=== PATIENT | female | born 1945 | race African-American/Black ===

== ENCOUNTER 2017-02-15 13:32 | Inpatient (IN) | payer OTHER, MEDICARE ==
[~2017-02-15] VITALS: Ht 165.1 cm; Wt 68.0 kg
[~2017-02-15 13:32] MED LIST: DICL75TA5 PO; ESTR0.3T3 PO; METFORMIN PO; PROT40 PO
[2017-02-15] MEDS ORDERED: MORPHINE SULFATE 4 MG/ML CPJ (NOT FOR IM USE) IV STA (13:44)
[2017-02-15] MEDS ORDERED: ONDANSETRON HCL 4MG/2ML VIAL IV STA (13:44)
[2017-02-15] MEDS ORDERED: NITROGLYCERIN OINT 1GM/INCH UDPKT TD STA (13:44)
[2017-02-15] MEDS ORDERED: DILTIAZEM HCL 5MG/ML 5ML VIAL IV ONE (13:45)
[2017-02-15] MEDS ORDERED: MORPHINE SULFATE 2 MG/ML CPJ (NOT FOR IM USE) IV NR (14:15)
[2017-02-15 14:17] LABS: BASOPHILS % 0.8 % (0.0-2.0); EOSINOPHILS % 0.6 % (0.0-5.0); HEMATOCRIT. 42.2 % (36.0-48.0); HEMOGLOBIN. 14.2 g/dL (12.0-16.0); LYMPHOCYTES % 20.2 % (20.0-50.0); MEAN CORPUSCULAR HEMOGLOBIN 27.1 pg (28.0-32.0); MEAN CORPUSCULAR VOLUME 80.6 fL (81.0-99.0); MEAN PLATELET VOLUME 8.1 fl (7.4-10.4); MONOCYTES % 5.5 % (2.0-8.0); NEUTROPHILS % 72.9 % (40.0-76.0); PLATELET 302 x1000/uL (130-400); RED BLOOD CELL COUNT 5.24 mill/uL (4.2-5.4); RED CELL DISTRIBUTION WIDTH 13.6 % (11.6-14.6)
[2017-02-15 14:27] LABS: PARTIAL THROMBOPLASTIN TIME 24.9 sec (23.4-31.0); PROTHROMBIN TIME 10.9 sec (9.4-11.6)
[2017-02-15 14:33] LABS: CARBON DIOXIDE 24 mEq/L (21-32); CHLORIDE 106 mEq/L (98-107); TROPONIN I < 0.02 ng/mL (0.00-0.04)
[2017-02-15 14:39] LABS: T4 FREE 1.08 ng/dL (0.76-1.46)
[2017-02-15] MEDS ORDERED: ASPIRIN 81MG EC TABLET PO NR (17:00)
[2017-02-15 23:55] VITALS: BP 157/81
[2017-02-16] VITALS: BP 157/81
[2017-02-16] MEDS ORDERED: DEXTROSE 50% WATER 50ML SYRINGE IV PRN (00:30)
[2017-02-16] MEDS ORDERED: TRAM50TA3 PO (00:34)
[2017-02-16] MEDS ORDERED: DILT120C51 PO (00:34)
[2017-02-16] MEDS ORDERED: TRIA1TAB94 PO (00:34)
[2017-02-16] MEDS ORDERED: DIAZ5TAB4 PO (00:34)
[2017-02-16] MEDS ORDERED: DIAZEPAM 5 MG TABLET PO PRN (00:45)
[2017-02-16] MEDS ORDERED: MORPHINE SULFATE 2 MG/ML CPJ (NOT FOR IM USE) IV PRN (00:45)
[2017-02-16] MEDS: DILTIAZEM HCL 60MG TABLET PO SCH ×3 (01:52→14:24)
[2017-02-16 04:12] VITALS: BP 107/54
[2017-02-16] MEDS: INSULIN LISPRO 100 UNITS/ML SUBCUT SCH ×2 (05:58→12:15)
[2017-02-16] MEDS: BLOOD SUGAR DIAGNOSTIC STRIP TEST SCH ×2 (05:58→12:14)
[2017-02-16 06:21] LABS: BASOPHILS % 0.3 % (0.0-2.0); EOSINOPHILS % 0.1 % (0.0-5.0); HEMATOCRIT. 38.2 % (36.0-48.0); HEMOGLOBIN. 12.6 g/dL (12.0-16.0); LYMPHOCYTES % 18.1 % (20.0-50.0); MEAN CORPUSCULAR HEMOGLOBIN 26.9 pg (28.0-32.0); MEAN CORPUSCULAR VOLUME 81.8 fL (81.0-99.0); MEAN PLATELET VOLUME 8.2 fl (7.4-10.4); MONOCYTES % 3.5 % (2.0-8.0); PLATELET 277 x1000/uL (130-400); RED BLOOD CELL COUNT 4.67 mill/uL (4.2-5.4); RED CELL DISTRIBUTION WIDTH 13.8 % (11.6-14.6)
[2017-02-16 06:28] LABS: CARBON DIOXIDE 25 mEq/L (21-32); CHLORIDE 106 mEq/L (98-107)
[2017-02-16] MEDS ORDERED: METFORMIN HCL 500MG TABLET PO SCH (07:15)
[2017-02-16 08:00] VITALS: BP 128/61
[2017-02-16] MEDS ORDERED: ENOXAPARIN 40MG/0.4ML SYR SUBCUT SCH (09:00)
[2017-02-16] MEDS ORDERED: METFORMIN 500 MG PO SCH (09:00)
[2017-02-16] MEDS ORDERED: TRIAMTERENE/HYDROCHLOROTHIAZIDE 37.5/25MG CAPSULE PO SCH (09:00)
[2017-02-16 12:00] VITALS: BP 138/72
[2017-02-16 14:38] VITALS: BP 138/72
== END 2017-02-16 14:50 | disposition home or self-care (01) | DRG 310 ==
LOC: EDBEDREQ 14:28 → ER 14:36 → 5WST 14:52 → ENRESERV 20:36
PROVIDERS: ADMIT Internal Medicine; ATTEND Internal Medicine
DX: I47.1 Supraventricular tachycardia (principal); E11.9 Type 2 diabetes mellitus without complications; I11.9 Hypertensive heart disease without heart failure; Z87.891 Personal history of nicotine dependence; Z79.899 Other long term (current) drug therapy
CPT/HCPCS: 36415; 71010; 80048; 80053; 82962; 83690; 83735; 83880; 84439; 84443; 84481; 84484; 85025; 85610; 85730; 93005; 93306; 96374; 96375; 96376; 99291; J1650; J2270; J2405; J3490

== ENCOUNTER 2017-09-29 18:40 | Inpatient (IN) | payer OTHER, MEDICARE ==
[~2017-09-29] VITALS: Ht 165.1 cm; Wt 70.3 kg
[~2017-09-29 18:40] MED LIST changes: +DIAZ5TAB4 PO; +TRAM50TA3 PO; +TRIA1TAB94 PO
[2017-09-29] MEDS ORDERED: MORPHINE SULFATE 4 MG/ML CPJ (NOT FOR IM USE) IV STA (21:28)
[2017-09-29] MEDS ORDERED: ONDANSETRON HCL 4MG/2ML VIAL IV STA (21:28)
[2017-09-29] MEDS ORDERED: GLUCAGON,HUMAN RECOMBINANT 1MG/VIAL IV ONE (21:30)
[2017-09-29] MEDS ORDERED: FAMOTIDINE 20MG/2ML VIAL IV ONE (21:30)
[2017-09-29 21:56] LABS: HEMATOCRIT. 42.1 % (36.0-48.0); HEMOGLOBIN. 13.6 g/dL (12.0-16.0); MEAN CORPUSCULAR HEMOGLOBIN 26.2 pg (28.0-32.0); MEAN PLATELET VOLUME 8.3 fl (7.4-10.4); PLATELET 297 x1000/uL (130-400); RED CELL DISTRIBUTION WIDTH 13.5 % (11.6-14.6)
[2017-09-29 21:57] LABS: CHLORIDE 106 mEq/L (98-107)
[2017-09-29 22:00] LABS: PARTIAL THROMBOPLASTIN TIME 21.5 sec (23.4-31.0); PROTHROMBIN TIME 10.6 sec (9.4-11.6)
[2017-09-29 22:15] LABS: PLATELET ESTIMATE NORMAL
[2017-09-29] MEDS ORDERED: ASPIRIN 81MG TABLET PO STA (23:54)
[2017-09-30] VITALS (7 sets, daily range): BP systolic 144–156; BP diastolic 74–90
[2017-09-30] MEDS ORDERED: NITROGLYCERIN 0.4MG TABLET SL SL PRN
[2017-09-30] MEDS ORDERED: ONDANSETRON HCL 4MG/2ML VIAL IV STA (00:44)
[2017-09-30] MEDS ORDERED: MORPHINE SULFATE 4 MG/ML CPJ (NOT FOR IM USE) IV STA (00:44)
[2017-09-30] MEDS ORDERED: DEXTROSE 50% WATER 50ML SYRINGE IV PRN (04:45)
[2017-09-30] MEDS ORDERED: CLONIDINE 0.1MG TABLET PO PRN ×2 (04:45→05:50)
[2017-09-30] MEDS: OMEPRAZOLE 20MG CAPSULE EXTENDED RELEASE PO SCH (06:10)
[2017-09-30] MEDS: INSULIN LISPRO 100 UNITS/ML SUBCUT SCH ×4 (06:21→20:35)
[2017-09-30] MEDS: BLOOD SUGAR DIAGNOSTIC STRIP TEST SCH ×4 (06:21→20:35)
[2017-09-30 06:55] LABS: BASOPHILS % 0.8 % (0.0-2.0); EOSINOPHILS % 0.1 % (0.0-5.0); HEMOGLOBIN. 12.1 g/dL (12.0-16.0); LYMPHOCYTES % 9.6 % (20.0-50.0); MEAN CORPUSCULAR HEMOGLOBIN 26.6 pg (28.0-32.0); MEAN PLATELET VOLUME 8.4 fl (7.4-10.4); MONOCYTES % 4.2 % (2.0-8.0); NEUTROPHILS % 85.3 % (40.0-76.0); PLATELET 270 x1000/uL (130-400); RED BLOOD CELL COUNT 4.56 mill/uL (4.2-5.4); RED CELL DISTRIBUTION WIDTH 13.6 % (11.6-14.6)
[2017-09-30 07:24] LABS: CHLORIDE 108 mEq/L (98-107)
[2017-09-30 07:34] LABS: LDL CHOLESTEROL 81 mg/dL (5-100)
[2017-09-30 07:36] LABS: HDL CHOLESTEROL 79 mg/dL (40-59)
[2017-09-30] MEDS: ENOXAPARIN 40MG/0.4ML SYR SUBCUT SCH (08:33)
[2017-09-30 11:13] LABS: CREATINE KINASE 81 IU/L (26-192)
[2017-09-30 11:14] LABS: CREATINE KINASE MB FRACTION 0.5 ng/mL (0.5-3.6)
[2017-09-30] MEDS: HYDROCODONE/ACETAMINOPHEN 5/325MG TABLET PO PRN ×2 (12:03→21:24)
[2017-09-30] MEDS ORDERED: REGADENOSON 0.4 MG/5 ML IV ONE (12:30)
[2017-09-30] MEDS ORDERED: DILT-26 PO (15:42)
[2017-09-30] MEDS ORDERED: IBUPROFEN 800MG TABLET PO PRN (16:00)
[2017-09-30] MEDS: DILTIAZEM HCL 90MG TABLET PO SCH (16:11)
[2017-09-30 20:54] LABS: CREATINE KINASE 58 IU/L (26-192)
[2017-09-30 20:55] LABS: CREATINE KINASE MB FRACTION < 0.5 ng/mL (0.5-3.6)
[2017-10-01] VITALS: BP 148/73
[2017-10-01 02:02] LABS: CREATINE KINASE 53 IU/L (26-192)
[2017-10-01 02:03] LABS: CREATINE KINASE MB FRACTION < 0.5 ng/mL (0.5-3.6)
[2017-10-01 04:00] VITALS: BP 153/74
[2017-10-01] MEDS: INSULIN LISPRO 100 UNITS/ML SUBCUT SCH ×2 (06:53→11:43)
[2017-10-01] MEDS: BLOOD SUGAR DIAGNOSTIC STRIP TEST SCH ×2 (06:53→11:43)
[2017-10-01] MEDS: OMEPRAZOLE 20MG CAPSULE EXTENDED RELEASE PO SCH (07:10)
[2017-10-01 08:00] VITALS: BP 141/66
[2017-10-01] MEDS: DILTIAZEM HCL 90MG TABLET PO SCH ×2 (08:18→11:51)
[2017-10-01] MEDS: ENOXAPARIN 40MG/0.4ML SYR SUBCUT SCH (08:18)
[2017-10-01] MEDS ORDERED: REGADENOSON 0.4 MG/5 ML IV ONE (10:43)
[2017-10-01 12:00] VITALS: BP 139/76
[2017-10-01 12:35] VITALS: BP_SYST 140; BP_SYST 143; BP_DIAS 70; BP_DIAS 74
[2017-10-01 13:13] VITALS: BP 163/81
== END 2017-10-01 15:25 | disposition home or self-care (01) | DRG 313 ==
LOC: ER 18:40 → 8WST 09-30 00:24 → ENRESERV 09-30 01:42
PROVIDERS: ADMIT Internal Medicine; ATTEND Internal Medicine
DX: R07.89 Other chest pain (principal); E11.65 Type 2 diabetes mellitus with hyperglycemia; Z96.649 Presence of unspecified artificial hip joint; I10 Essential (primary) hypertension; Z82.49 Family history of ischemic heart disease and other diseases of the circulatory system; Z79.84 Long term (current) use of oral hypoglycemic drugs; Z79.899 Other long term (current) drug therapy
CPT/HCPCS: 36415; 70360; 71045; 78452; 80048; 80053; 80061; 82550; 82553; 82962; 83036; 84443; 84484; 85025; 85610; 85730; 86850; 86900; 93005; 93017; 93306; A9500; J1610; J1650; J1815; J2270; J2405; J2785; J3490

== ENCOUNTER 2018-08-26 07:07 | Inpatient (IN) | payer OTHER, MEDICARE ==
[~2018-08-26] VITALS: Ht 162.6 cm; Wt 67.6 kg
[~2018-08-26 07:07] MED LIST changes: +DILT-26 PO
[2018-08-26] MEDS ORDERED: NITROGLYCERIN OINT 1GM/INCH UDPKT TD ONE (08:00)
[2018-08-26] MEDS ORDERED: ASPIRIN 325MG EC TABLET PO ONE (08:00)
[2018-08-26 08:33] LABS: CHLORIDE 108 mEq/L (98-107)
[2018-08-26 08:36] LABS: EOSINOPHILS % 0.8 % (0.0-5.0); HEMOGLOBIN. 12.8 g/dL (12.0-16.0); MEAN CORPUSCULAR VOLUME 82.1 fL (81.0-99.0); MEAN PLATELET VOLUME 8.6 fl (7.4-10.4); MONOCYTES % 3.7 % (2.0-8.0); NEUTROPHILS % 79.5 % (40.0-76.0); PLATELET 283 x1000/uL (130-400); RED BLOOD CELL COUNT 4.75 mill/uL (4.2-5.4)
[2018-08-26 08:43] LABS: D-DIMER 0.36 mg/L FEU (<0.50); INR 1.2; PROTHROMBIN TIME 11.9 sec (9.6-11.0)
[2018-08-26 11:10] VITALS: BP 142/81
[2018-08-26] MEDS ORDERED: ATOR10TA69 PO (11:34)
[2018-08-26] MEDS ORDERED: ACETAMINOPHEN 650MG/20.3ML UDC PO PRN (12:00)
[2018-08-26] MEDS ORDERED: ONDANSETRON HCL 4MG/2ML INJ IV PRN (12:00)
[2018-08-26] MEDS: DILTIAZEM HCL 90MG TABLET PO SCH ×2 (13:22→21:03)
[2018-08-26] MEDS ORDERED: SODIUM POLYSTYRENE SULFONATE 15 G/60 ML BOT PO NR (14:00)
[2018-08-26 16:00] VITALS: BP 124/80
[2018-08-26] MEDS ORDERED: PNEUMOCOCCAL 23-VAL P-SAC VAC 0.5 ML IM ONE (16:00)
[2018-08-26] MEDS ORDERED: TRAMADOL 50MG TABLET PO PRN (16:30)
[2018-08-26] MEDS: HYDROCODONE/ACETAMINOPHEN 5/325MG TABLET PO PRN (18:51)
[2018-08-26] MEDS ORDERED: DEXTROSE 50% WATER 50ML SYRINGE IV PRN ×2 (19:45)
[2018-08-26 20:00] VITALS: BP 116/82
[2018-08-26] MEDS: BLOOD SUGAR DIAGNOSTIC STRIP TEST SCH (20:56)
[2018-08-26] MEDS: INSULIN LISPRO 100 UNITS/ML SUBCUT SCH (21:00)
[2018-08-26] MEDS ORDERED: ATORVASTATIN CALCIUM 10MG TABLET PO SCH (21:00)
[2018-08-27] VITALS: BP 106/67
[2018-08-27 04:00] VITALS: BP 124/68
[2018-08-27] MEDS: HYDROCODONE/ACETAMINOPHEN 5/325MG TABLET PO PRN (04:44)
[2018-08-27] MEDS: BLOOD SUGAR DIAGNOSTIC STRIP TEST SCH ×2 (05:50→12:10)
[2018-08-27] MEDS: DILTIAZEM HCL 90MG TABLET PO SCH (05:53)
[2018-08-27 06:05] LABS: BASOPHILS % 1.2 % (0.0-2.0); EOSINOPHILS % 0.7 % (0.0-5.0); HEMATOCRIT. 38.1 % (36.0-48.0); HEMOGLOBIN. 12.5 g/dL (12.0-16.0); LYMPHOCYTES % 26.4 % (20.0-50.0); MEAN CORPUSCULAR HEMOGLOBIN 26.7 pg (28.0-32.0); MEAN CORPUSCULAR VOLUME 81.1 fL (81.0-99.0); MEAN PLATELET VOLUME 8.4 fl (7.4-10.4); MONOCYTES % 5.1 % (2.0-8.0); NEUTROPHILS % 66.6 % (40.0-76.0); PLATELET 295 x1000/uL (130-400); RED BLOOD CELL COUNT 4.69 mill/uL (4.2-5.4)
[2018-08-27] MEDS: INSULIN LISPRO 100 UNITS/ML SUBCUT SCH ×2 (06:09→12:40)
[2018-08-27 06:47] LABS: CHLORIDE 108 mEq/L (98-107)
[2018-08-27 08:00] VITALS: BP 132/57
[2018-08-27] MEDS ORDERED: REGADENOSON 0.4 MG/5 ML IV ONE ×2 (11:00→12:17)
[2018-08-27 12:49] VITALS: BP 131/63
[2018-08-27 14:25] VITALS: BP 131/63
== END 2018-08-27 15:47 | disposition home or self-care (01) | DRG 313 ==
LOC: ER 07:07 → 8WST 09:35 → EDBEDREQTM 09:40 → EDBEDREQ 09:40 → ENRESERV 10:23
PROVIDERS: ADMIT Internal Medicine; ATTEND Internal Medicine
DX: R07.89 Other chest pain (principal); R00.2 Palpitations; E11.9 Type 2 diabetes mellitus without complications; E78.5 Hyperlipidemia, unspecified; E87.5 Hyperkalemia; I10 Essential (primary) hypertension; K21.9 Gastro-esophageal reflux disease without esophagitis; F41.9 Anxiety disorder, unspecified; Z79.84 Long term (current) use of oral hypoglycemic drugs; Z82.49 Family history of ischemic heart disease and other diseases of the circulatory system; Z83.3 Family history of diabetes mellitus
CPT/HCPCS: 36415; 71045; 78452; 80048; 80061; 82962; 83036; 83735; 83880; 84132; 84443; 84484; 85379; 90732; 93005; 93017; 93306; 99285; A9500; J2405; J2785

== ENCOUNTER 2022-02-08 12:11 | Emergency (ER) | payer MEDICARE, OTHER ==
[~2022-02-08] VITALS: Ht 165.1 cm; Wt 78.0 kg
[~2022-02-08 12:11] MED LIST changes: +ATOR10TA69 PO
[2022-02-08 12:14] VITALS: BP 128/78
[2022-02-08] MEDS ORDERED: KETOROLAC 60MG/2ML VIAL IM ONE (15:45)
[2022-02-08] MEDS ORDERED: ACETAMINOPHEN 325MG TABLET PO ONE (15:45)
[2022-02-08] MEDS ORDERED: METHOCARBAMOL 750MG TABLET PO SCH (15:45)
[2022-02-08] MEDS: LIDOCAINE 5% PATCH TOP SCH ×2 (16:25→16:30)
[2022-02-08] MEDS ORDERED: TOPUD PO (17:06)
[2022-02-08] MEDS ORDERED: IBUP-2028 MT (17:06)
[2022-02-08] MEDS ORDERED: LIDO1ADH23 TP (17:06)
[2022-02-08] MEDS ORDERED: METH-653 MT (17:06)
== END 2022-02-08 17:41 | disposition home or self-care (01) ==
LOC: ER 12:11
DX: M54.31 Sciatica, right side (principal); E11.9 Type 2 diabetes mellitus without complications
CPT/HCPCS: 96372; 99283; J1885

== ENCOUNTER 2022-09-10 09:45 | Emergency (ER) | payer OTHER, MEDICARE ==
[~2022-09-10] VITALS: Ht 165.1 cm; Wt 66.0 kg
[~2022-09-10 09:45] MED LIST changes: +IBUP-2028 MT; +LIDO1ADH23 TP; +METH-653 MT; +TOPUD PO
[2022-09-10 09:59] VITALS: BP 148/47
[2022-09-10] MEDS ORDERED: ACET-2708 MT (12:19)
[2022-09-10] MEDS ORDERED: LIDO700A15 TP (12:19)
== END 2022-09-10 13:28 | disposition home or self-care (01) ==
LOC: ER 09:45
DX: M25.561 Pain in right knee (principal); E11.9 Type 2 diabetes mellitus without complications; Z79.899 Other long term (current) drug therapy
CPT/HCPCS: 73562; 93971; 99284

== ENCOUNTER 2023-10-08 17:41 | Emergency (ER) | payer OTHER, MEDICARE ==
[~2023-10-08] VITALS: Ht 165.1 cm; Wt 68.0 kg
[~2023-10-08 17:41] MED LIST changes: +ACET-2708 MT; +LIDO700A15 TP
[2023-10-08 18:10] VITALS: O2SAT 99
[2023-10-08] MEDS: ACETAMINOPHEN 500MG TABLET PO ONE (20:20)
[2023-10-08] MEDS ORDERED: ACET-2708 MT (20:57)
[2023-10-08 21:48] VITALS: BP 154/87; PULSE 77; RESP 18; TEMP 98
== END 2023-10-08 22:00 | disposition home or self-care (01) ==
LOC: ER 17:41
DX: S10.83XA Contusion of other specified part of neck, initial encounter (principal); S20.229A Contusion of unspecified back wall of thorax, initial encounter; M48.00 Spinal stenosis, site unspecified; W18.39XA Other fall on same level, initial encounter; Y93.89 Activity, other specified; Y92.89 Other specified places as the place of occurrence of the external cause; Y99.8 Other external cause status
CPT/HCPCS: 71045; 72128; 99284